=== PATIENT | male | born 1965 | race Caucasian/White ===

== ENCOUNTER 2017-12-15 18:36 | Inpatient (IN) | payer MEDICAID ==
[~2017-12-15] VITALS: Ht 162.6 cm; Wt 77.1 kg
[~2017-12-15 18:36] MED LIST: COLACE100 MG PO; FLO4 PO; NOR10T PO
[2017-12-15 18:45] VITALS: Ht 162.6 cm; Wt 77.1 kg
[2017-12-15 19:45] LABS: GFR1 > 60 mL/min
[2017-12-15 21:58] VITALS: BP 127/86
[2017-12-15 22:59] LABS: RED CELL DISTRIBUTION WIDTH 14.5 % (11.5-14.5)
[2017-12-15 23:00] LABS: PLATELET COUNT 204 x10^3mcL (130-400)
[2017-12-15 23:01] LABS: T3 TOTAL 1.12 ng/mL
[2017-12-15 23:02] LABS: BASOPHIL % 0.2 % (0-2)
[2017-12-15 23:06] LABS: SODIUM SERUM 140 mmol/L (136-145)
[2017-12-15 23:07] LABS: CHLORIDE SERUM 106 mmol/L (98-107)
[2017-12-15 23:08] LABS: CARBON DIOXIDE 23.5 mmol/L (21-32)
[2017-12-15 23:09] LABS: CREATININE SERUM 0.8 mg/dL (0.7-1.3); GLUCOSE SERUM 100 mg/dL (74-106)
[2017-12-15 23:10] LABS: MAGNESIUM 1.9 mg/dL (1.8-2.4); PHOSPHOROUS 2.6 mg/dL (2.5-4.9); TOTAL PROTEIN, SERUM 6.9 g/dL (6.4-8.2)
[2017-12-15 23:11] LABS: ALBUMIN 3.8 g/dL (3.4-5.0)
[2017-12-15 23:12] LABS: CALCIUM 9.4 mg/dL (8.5-10.1)
[2017-12-15 23:13] LABS: ALT/SGPT 33 U/L (16-63); AST/SGOT 17 U/L (15-37); BILIRUBIN TOTAL 0.6 mg/dL (0.20-1.00); FREE T4 0.99 ng/dL (0.76-1.46); FREE THYROXINE INDEX 2.5 ug/dL (1.4-4.5); T4(THYROXINE) 7.6 ug/dL (4.7-13.3)
[2017-12-15 23:14] LABS: ALKALINE PHOSPHATASE 55 U/L (46-116)
[2017-12-15 23:25] LABS: CHOLESTEROL/HDL RATIO 4.5
[2017-12-15 23:31] LABS: LIPASE 810 IU/L (73-393)
[2017-12-16 05:25] VITALS: BP 139/89
[2017-12-16 06:37] LABS: BASOPHIL % 0.4 % (0-2); PLATELET COUNT 183 x10^3mcL (130-400); RED CELL DISTRIBUTION WIDTH 14.2 % (11.5-14.5)
[2017-12-16 06:51] LABS: CARBON DIOXIDE 23.2 mmol/L (21-32); CHLORIDE SERUM 108 mmol/L (98-107); CREATININE SERUM 1.2 mg/dL (0.7-1.3); GFR1 > 60 mL/min; GLUCOSE SERUM 103 mg/dL (74-106); SODIUM SERUM 140 mmol/L (136-145)
[2017-12-16 09:08] VITALS: BP 136/88
[2017-12-16 13:07] VITALS: BP 118/70
[2017-12-16 15:13] LABS: UA SPECIFIC GRAVITY >=1.030 (1.005-1.035); microscopic required? YES; urine erythrocyte 2+ (NEGATIVE)
[2017-12-16 15:21] LABS: AMPHETAMINE QUAL UR NONE DETECTED (NEG <=1000)
[2017-12-16 17:26] VITALS: BP 125/73
[2017-12-16 20:46] VITALS: BP 126/66
[2017-12-17 05:16] VITALS: BP 111/67
[2017-12-17 06:23] LABS: BASOPHIL % 0.4 % (0-2); PLATELET COUNT 171 x10^3mcL (130-400); RED CELL DISTRIBUTION WIDTH 14.2 % (11.5-14.5)
[2017-12-17 06:29] LABS: CALCIUM 8.6 mg/dL (8.5-10.1); CARBON DIOXIDE 24.2 mmol/L (21-32); CREATININE SERUM 1.6 mg/dL (0.7-1.3); MAGNESIUM 1.9 mg/dL (1.8-2.4); PHOSPHOROUS 2.6 mg/dL (2.5-4.9); POTASSIUM SERUM 3.9 mmol/L (3.5-5.1)
[2017-12-17 10:54] VITALS: BP 114/67
[2017-12-17 13:29] VITALS: BP 122/70
[2017-12-17 16:29] LABS: CALCIUM 8.7 mg/dL (8.5-10.1); CHLORIDE SERUM 109 mmol/L (98-107); CREATININE SERUM 1.3 mg/dL (0.7-1.3); GFR1 > 60 mL/min; GLUCOSE SERUM 90 mg/dL (74-106); POTASSIUM SERUM 3.9 mmol/L (3.5-5.1); SODIUM SERUM 144 mmol/L (136-145)
[2017-12-17 17:01] VITALS: BP 109/58
[2017-12-17 21:22] VITALS: BP 108/70
[2017-12-18 05:14] VITALS: BP 124/69
[2017-12-18 06:56] LABS: CALCIUM 8.5 mg/dL (8.5-10.1); CARBON DIOXIDE 23.9 mmol/L (21-32); CHLORIDE SERUM 109 mmol/L (98-107); CREATININE SERUM 0.9 mg/dL (0.7-1.3); GFR1 > 60 mL/min; GLUCOSE SERUM 93 mg/dL (74-106); POTASSIUM SERUM 3.7 mmol/L (3.5-5.1); SODIUM SERUM 141 mmol/L (136-145)
[2017-12-18 07:05] LABS: BASOPHIL % 0.5 % (0-2); PLATELET COUNT 166 x10^3mcL (130-400); RED CELL DISTRIBUTION WIDTH 14.3 % (11.5-14.5)
[2017-12-18 09:37] VITALS: BP 121/72
[2017-12-18 10:45] LABS: BILIRUBIN DIRECT 0.15 mg/dL (0.0-0.2); BILIRUBIN TOTAL 0.92 mg/dL (0.20-1.00)
[2017-12-18 10:47] LABS: ALBUMIN 3.1 g/dL (3.4-5.0)
[2017-12-18 14:23] VITALS: BP 121/72
[2017-12-18 17:10] VITALS: BP 131/87
[2017-12-18 21:42] VITALS: BP 127/83
[2017-12-19 05:21] VITALS: BP 119/75
[2017-12-19 09:25] VITALS: BP 125/84
[2017-12-19] MEDS ORDERED: NORCO1 TA2 PO (13:38)
[2017-12-19] MEDS ORDERED: FLO4 PO (13:41)
[2017-12-19] MEDS ORDERED: OMEPRAZOLE20 M4 PO (13:46)
[2017-12-19 15:59] VITALS: BP 125/84
[2017-12-19 16:51] VITALS: BP 115/71
[2017-12-19 21:49] VITALS: BP 130/78
[2017-12-20 05:12] VITALS: BP 110/70
[2017-12-20 07:03] LABS: CALCIUM 8.5 mg/dL (8.5-10.1); CARBON DIOXIDE 21.5 mmol/L (21-32); CHLORIDE SERUM 105 mmol/L (98-107); CREATININE SERUM 0.9 mg/dL (0.7-1.3); GFR1 > 60 mL/min; GLUCOSE SERUM 77 mg/dL (74-106); MAGNESIUM 1.4 mg/dL (1.8-2.4); PHOSPHOROUS 3.3 mg/dL (2.5-4.9); POTASSIUM SERUM 3.4 mmol/L (3.5-5.1); SODIUM SERUM 139 mmol/L (136-145)
[2017-12-20 07:07] LABS: BASOPHIL % 0.4 % (0-2); PLATELET COUNT 179 x10^3mcL (130-400); RED CELL DISTRIBUTION WIDTH 14.2 % (11.5-14.5)
[2017-12-20 10:14] VITALS: BP 102/61
[2017-12-20 12:57] VITALS: BP 102/61
== END 2017-12-20 13:29 | disposition home or self-care (01) | DRG 282 ==
LOC: ED 18:36 → DU 20:54 → MU 20:54 → DU 21:51 → MU 12-18 09:18
PROVIDERS: Emergency Medicine; Family Medicine; Internal Medicine Gastroenterology
PROC: 0DB68ZX Excision of Stomach, Via Natural or Artificial Opening Endoscopic, Diagnostic (ICD-10-PCS; principal; 2017-12-19 09:00)
PROC: 0DJD8ZZ Inspection of Lower Intestinal Tract, Via Natural or Artificial Opening Endoscopic (ICD-10-PCS; 2017-12-19 09:00)
DX: K85.90 Acute pancreatitis without necrosis or infection, unspecified (principal); N17.0 Acute kidney failure with tubular necrosis; K76.0 Fatty (change of) liver, not elsewhere classified; F32.9 Major depressive disorder, single episode, unspecified; E87.6 Hypokalemia; D64.9 Anemia, unspecified; K57.90 Diverticulosis of intestine, part unspecified, without perforation or abscess without bleeding; E78.5 Hyperlipidemia, unspecified; K64.8 Other hemorrhoids; K29.70 Gastritis, unspecified, without bleeding; K21.9 Gastro-esophageal reflux disease without esophagitis; N20.0 Calculus of kidney; E44.0 Moderate protein-calorie malnutrition; E83.42 Hypomagnesemia; Z68.28 Body mass index [BMI] 28.0-28.9, adult
CPT/HCPCS: 43235; 45378; 83880; 84439; 90658; J0610; J1200; J1610; J1885; J1956; J2250; J2270; J2310; J3010; J3480; J3490; J7030; J7050; Q0092; Q0162; Q0169

== ENCOUNTER 2018-04-13 15:24 | Emergency (ER) | payer MEDICAID ==
[~2018-04-13] VITALS: Ht 162.6 cm; Wt 76.7 kg
[~2018-04-13 15:24] MED LIST changes: +NORCO1 TA2 PO; +OMEPRAZOLE20 M4 PO
[2018-04-13 15:32] VITALS: Ht 162.6 cm; Wt 76.7 kg
[2018-04-13 17:13] VITALS: BP 121/88
== END 2018-04-13 17:13 | disposition home or self-care (01) ==
LOC: ED 15:24
DX: R30.0 Dysuria (principal); H11.002 Unspecified pterygium of left eye; F32.9 Major depressive disorder, single episode, unspecified; F17.210 Nicotine dependence, cigarettes, uncomplicated; Z90.49 Acquired absence of other specified parts of digestive tract; Z71.6 Tobacco abuse counseling
CPT/HCPCS: 99406